=== PATIENT | female | born 1945 | race Native Hawaiian/Other Pacific Islander ===

== ENCOUNTER 2017-02-14 08:00 | Outpatient (CLI) | payer OTHER, BC ==
[2017-02-14 08:19] LABS: PLATELET COUNT 164 K/uL (152-353)
[2017-02-14 09:26] LABS: POTASSIUM 3.8 mmol/L (3.6-5.2)
== END 2017-02-14 19:12 | disposition home or self-care (01) ==
LOC: LABW 08:00
PROVIDERS: Internal Medicine
DX: E11.9 Type 2 diabetes mellitus without complications (principal); E03.8 Other specified hypothyroidism
CPT/HCPCS: 36415; 80053; 80061; 81000; 83036; 84439; 84443; 85027